=== PATIENT | male | born 1985 | race African-American/Black ===

== ENCOUNTER 2016-10-25 08:53 | Emergency (ER) | payer BC ==
[~2016-10-25] VITALS: Ht 175.3 cm; Wt 88.1 kg
[~2016-10-25 08:53] MED LIST: ATIVAN1 MG PO; KEPPRA500 MG PO; METOPROLOL SUCC50 M2 PO; NOR10T PO; XANAX1 MG PO; ZESTRIL20 MG PO
[2016-10-25 09:35] LABS: PLATELET COUNT 295 x10^3mcL (130-400); RED CELL DISTRIBUTION WIDTH 13.4 % (11.5-14.5)
[2016-10-25 09:47] LABS: CALCIUM 9.3 mg/dL (8.5-10.1); CARBON DIOXIDE 29.4 mmol/L (21-32); CHLORIDE SERUM 103 mmol/L (98-107); CREATININE SERUM 0.9 mg/dL (0.7-1.3); GFR1 > 60 mL/min; GLUCOSE SERUM 102 mg/dL (74-106); POTASSIUM SERUM 3.8 mmol/L (3.5-5.1); SODIUM SERUM 140 mmol/L (136-145)
[2016-10-25 09:52] LABS: ALBUMIN 4.1 g/dL (3.4-5.0); ALKALINE PHOSPHATASE 89 U/L (46-116); ALT/SGPT 32 U/L (16-63); AMYLASE 89 U/L (25-115); AST/SGOT 27 U/L (15-37); BILIRUBIN TOTAL 0.5 mg/dL (0.20-1.00); LIPASE 65 IU/L (73-393); TOTAL PROTEIN, SERUM 7.4 g/dL (6.4-8.2)
[2016-10-25 10:32] LABS: BAND NEUTROPHIL 0 % (0-10); BASOPHIL 0 % (0-2); MONOCYTE 3 % (0-7); SEGMENTED NEUTROPHILS 65 % (37-75)
[2016-10-25 12:36] LABS: UA SPECIFIC GRAVITY >=1.030 (1.005-1.035); microscopic required? YES; urine erythrocyte NEGATIVE (NEGATIVE)
[2016-10-25 15:31] VITALS: BP 130/79
== END 2016-10-25 15:31 | disposition home or self-care (01) ==
LOC: ED 08:53
PROVIDERS: Emergency Medicine
DX: R10.31 Right lower quadrant pain (principal)
CPT/HCPCS: J1170; J1885; J2405; Q9967

== ENCOUNTER 2017-01-02 07:56 | Emergency (ER) | payer OTHER ==
[2017-01-02 09:52] LABS: PLATELET COUNT 220 x10^3mcL (130-400); RED CELL DISTRIBUTION WIDTH 13.8 % (11.5-14.5)
[2017-01-02 10:06] LABS: ALBUMIN 4.1 g/dL (3.4-5.0); ALKALINE PHOSPHATASE 123 U/L (46-116); ALT/SGPT 32 U/L (16-63); AMYLASE 88 U/L (25-115); AST/SGOT 33 U/L (15-37); BILIRUBIN TOTAL 0.4 mg/dL (0.20-1.00); CALCIUM 7.5 mg/dL (8.5-10.1); CARBON DIOXIDE 30.1 mmol/L (21-32); CHLORIDE SERUM 104 mmol/L (98-107); CREATININE SERUM 1.1 mg/dL (0.7-1.3); GFR1 > 60 mL/min; GLUCOSE SERUM 94 mg/dL (74-106); LIPASE 72 IU/L (73-393); POTASSIUM SERUM 5.5 mmol/L (3.5-5.1); SODIUM SERUM 139 mmol/L (136-145); TOTAL PROTEIN, SERUM 7.7 g/dL (6.4-8.2)
[2017-01-02 10:07] LABS: CHOLESTEROL 132 mg/dL (<200); HDL CHOLESTEROL 93 mg/dL (40-60)
[2017-01-02 10:30] LABS: BAND NEUTROPHIL 1 % (0-10); BASOPHIL 0 % (0-2); MONOCYTE 4 % (0-7); SEGMENTED NEUTROPHILS 49 % (37-75)
[2017-01-02 10:32] LABS: PLATELET MORPHOLOGY PLATELETS NORMAL
[2017-01-02 12:25] VITALS: BP 133/70
== END 2017-01-02 12:25 | disposition home or self-care (01) ==
LOC: ED 07:56
PROVIDERS: Emergency Medicine
DX: R51 Headache (principal); R07.9 Chest pain, unspecified; D64.9 Anemia, unspecified; I10 Essential (primary) hypertension; G91.9 Hydrocephalus, unspecified; G40.909 Epilepsy, unspecified, not intractable, without status epilepticus; P15.3 Birth injury to eye; Z79.899 Other long term (current) drug therapy; Z87.891 Personal history of nicotine dependence; Z88.5 Allergy status to narcotic agent; Z91.041 Radiographic dye allergy status; Z95.5 Presence of coronary angioplasty implant and graft; Z97.0 Presence of artificial eye
CPT/HCPCS: 36415; 83880; J1885

== ENCOUNTER 2017-01-09 08:56 | Inpatient (IN) | payer OTHER ==
[~2017-01-09] VITALS: Ht 175.3 cm; Wt 86.2 kg
--- NOTE | 2017-01-09 09:24 | NUR ---
LAB AT BEDSIDE FOR BLOOD DRAW
[2017-01-09 09:56] LABS: BASOPHIL % 0.2 % (0-2); PLATELET COUNT 268 x10^3mcL (130-400); RED CELL DISTRIBUTION WIDTH 13.8 % (11.5-14.5)
[2017-01-09 10:08] LABS: ALBUMIN 4.3 g/dL (3.4-5.0); ALKALINE PHOSPHATASE 114 U/L (46-116); ALT/SGPT 31 U/L (16-63); AST/SGOT 28 U/L (15-37); BILIRUBIN TOTAL 0.47 mg/dL (0.20-1.00); CALCIUM 9.6 mg/dL (8.5-10.1); CARBON DIOXIDE 25.4 mmol/L (21-32); CHLORIDE SERUM 104 mmol/L (98-107); CREATININE SERUM 1.2 mg/dL (0.7-1.3); GFR1 > 60 mL/min; GLUCOSE SERUM 105 mg/dL (74-106); POTASSIUM SERUM 3.8 mmol/L (3.5-5.1); SODIUM SERUM 140 mmol/L (136-145); TOTAL PROTEIN, SERUM 7.7 g/dL (6.4-8.2)
--- NOTE | 2017-01-09 10:14 | NUR ---
PT GIVEN A PILLOW FOR COMFORT.
--- NOTE | 2017-01-09 10:55 | NUR ---
PT TO CT VIA MARE
--- NOTE | 2017-01-09 11:12 | NUR ---
PT BACK FROM CT. WARM BLANKETS PROVIDED. PT IN POSITION OF COMFORT ON CM WILL CONTINUE TO MONITOR. PT REQUESTING PAIN MEDICATION ER MD NOTIFIED.
--- NOTE | 2017-01-09 12:00 | NUR ---
PORTABLE CXR AT BEDSIDE.
--- NOTE | 2017-01-09 12:08 | NUR ---
LAB AT BEDSIDE FOR BLOOD DRAW
[2017-01-09 12:21] LABS: PHOSPHOROUS 3.6 mg/dL (2.5-4.9)
[2017-01-09 12:26] LABS: CHOLESTEROL/HDL RATIO 1.7
--- NOTE | 2017-01-09 12:29 | NUR ---
CARE OF PT RESUMED BY BENITO POSEY IN TELE FLOOR. PT TRANSFERRED WITH NO INCIDENT VIA RSIDNEY ON PORTABLE CM. ALL BELONGINGS SENT WITH PT.
[2017-01-09 12:39] LABS: T3 TOTAL 0.97 ng/mL
[2017-01-09 12:44] VITALS: BP 143/79
[2017-01-09 12:48] LABS: FREE T4 1.02 ng/dL (0.76-1.46); FREE THYROXINE INDEX 2.6 ug/dL (1.4-4.5); T4(THYROXINE) 7.1 ug/dL (4.7-13.3)
--- NOTE | 2017-01-09 12:56 | NUR ---
Pt ARRIVED ON THE FLOOR. COMPLAINING OF RIGHT SIDED PAIN. RIGHT ARM PAIN AND RIGHT SHOULDER PAIN 10/ .PER REPORT Pt RECEIVED TORADOL PRIOR TO ARRVING ON THE FLOOR. A/OX4. CLEAR SPEECH. FOLLOW COMMANDS. ON TEL 10 SR HR 87. RADIAL AND PEDAL PULSES PALPABLE. NO EDEMA OR SWELLING NOTED. <3 SECS CAP REFILL. ON RA SAT 100%. BREATHING EVEN AND UNLABORED. NO NVD. VOIDING ADEQUATELY PER Pt. GENERALIZED WEAKNESS DUE TO PAIN. NO SKIN TEAR OR OPEN WOUND. IV SITE INTACT ON YAZMIN. NS INFUSING WELL AT 50 ML/HR. WILL CONTINUE TO MONITOR. CALL LIGHT WITHIN REACH.
--- NOTE | 2017-01-09 13:10 | NUR ---
SPOKE TO DR LEE REGARDING Pt COMPLAINING OF RIGHT SIDE PAIN 05/04.
--- NOTE | 2017-01-09 13:48 | NUR ---
IV DILAUDID GIVEN PER DR LEE. DR LEE AT BEDSIDE. WILL CONTINUE TO MONITOR.
--- NOTE | 2017-01-09 13:49 | NUR ---
IV INFILTRATED. IV INITIATED TO LFA GAUGE 22. X1 ATTEMPT . Pt TOELRATED WELL.
[2017-01-09 14:24] VITALS: BP 143/79
[2017-01-09 15:05] LABS: microscopic required? NO
[2017-01-09 15:15] LABS: UA SPECIFIC GRAVITY 1.025 (1.005-1.035); urine erythrocyte NEGATIVE (NEGATIVE)
--- NOTE | 2017-01-09 15:23 | NUR ---
WITNESS Pt MOVING HIS RIGHT ARM OUTSIDE THE DOOR. DR LEE NOTIFIED. DR LEE ALSO WITNESSES Pt MOVING HIS RIGHT ARM AND RIGHT HAND WHILE USING HIS CELLPHONE. WHEN WE ENTERED THE ROOM Pt IMMEDIATELY PUT HIS RIGHT HAND DOWN PRETENDING HE WAS NOT MOVING IT.
[2017-01-09 15:24] LABS: AMPHETAMINE QUAL UR NONE DETECTED (NEG <=1000)
--- NOTE | 2017-01-09 16:03 | NUR ---
Pt WAS SEEN BY PHYSICAL THERAPY.
--- NOTE | 2017-01-09 17:16 | NUR ---
RECEIVED REPORT FROM BENITO POSEY, PT DENIES SOB, DENIES PAIN, CALL LIGHT WITHIN REACH, WILL CONTINUE TO MONITOR.
--- NOTE | 2017-01-09 18:07 | NUR ---
PT ASLEEP, NO INDICATION OF PAIN, BREATHING EVEN AND UNLABORED, CALL LIGHT WITHIN REACH, WILL ENDORSE PT TO NEXT SHIFT.
[2017-01-09 18:30] VITALS: BP 120/76
--- NOTE | 2017-01-09 20:00 | NUR ---
PATIENT RECEIVED IN BED AWAKE,ALERT AND ORIENTED X4, SPEECH CLEAR, NO SZ ACTIVITY THIS TIME, SZ PREC. MAINTAINED, PADDED RAILS UP. BREATHING EVEN AND UNLABORED BS CLEAR ALL [place], DENIES SOB ON EXERTION. ON ROOM AIR SAT 99% DENIES SOB. DENIES CHEST PAINS HR=73BPM, RHYTHM REGULAR TELE# 10 NSR. IV SITE NO SIGN OF INFILTRATION. GENERALIZED WEAKNESS STATED AND STATED RUE IS WEAKER THAN THE LEFT,DIGITAL ART DIRECTOR EQUAL AND STRONG.VOIDING FREELY DENIES PAIN UPON URINATION.,SAFETY/FALL/SZ PRECAUTIONS MAINTAINED. WILL CONTINUE TO MONITOR.
[2017-01-09 20:26] VITALS: BP 137/72
--- NOTE | 2017-01-09 21:38 | NUR ---
SCHEDULED MEDS ADMINISTERED THIS TIME, PATIENT INFORMED ABOUT EACH MEDS ACTION AND PURPOSE PRIOR. NO DIFF SWALLOWING DURING ADMINISTRATION.ALSO COMPLAINED RUE PAIN RATED AT 7/10 MEDICATED PRN AND MADE COMFORTABLE IN BED. WILL CONTINUE TO MONITOR.
[2017-01-09 21:39] VITALS: BP 139/77
--- NOTE | 2017-01-09 22:49 | NUR ---
PAGED DR ESPINAL AWAITS CALL BACK.
--- NOTE | 2017-01-09 22:50 | NUR ---
PATIENT CHECKED THIS TIME STATED PAIN SUBSIDING BUT STILL LINGERING AT 3/10 WILL CONTINUE TO MONITOR.
--- NOTE | 2017-01-09 23:22 | NUR ---
DR WATERS HERE INFORMED HIM ABOUT PATIENTS PAIN AND REQUEST FOR DIET.
--- NOTE | 2017-01-09 23:51 | NUR ---
PATIENT STATED EARLIER THAT TORADOL WAS GIVEN TO HIM TODAY AND IT HELPED RELIEVE HIS RUE PAIN, DR BRYANT WAS INFORMED ABOUT IT AND ORDERED 1X DOSE OF TORADOL. PATIENT PAIN IS COMING BACK STATED RATED AT 5/10,.MEDICATED ORDERED.
--- NOTE | 2017-01-10 00:44 | NUR ---
EKG DONE, DR ESPINAL SAW PRINTED RHYTHM AND INTERPRETATION AND COMPARED TO FIRST EKG.
--- NOTE | 2017-01-10 02:02 | NUR ---
PATIENT COMPLAINED OF MATTHEW PAIN, RATED AT 5/10, MEDICATED PRN AND MADE COMFORTABLE IN BED. WILL CHECK EFFECTIVENESS.
--- NOTE | 2017-01-10 05:34 | NUR ---
SCHEDULED MEDS ADMINISTERED,INFORMED PATIENT OF ITS ACTION AND PURPOSE PRIOR. NO DIFF SWALLOWING DURING ADMINISTRATION.PATIENT COMPLAINED OF RUE PAIN RATED AT 8/10, WHEN OFFERED NORCO PATIENT REFUSED AND STATED NEEDS A IV SHOT INSTEAD INFORMED THAT WE WILL CALL MD TO REPORT COMPLAINT AND REQUEST.WILL CALL DR ESPINAL.
--- NOTE | 2017-01-10 05:54 | NUR ---
PRN MEDICATION FOR PAIN ADMINISTERED,PATIENT INFORMED ABOUT ITS PURPOSE.
[2017-01-10 06:02] VITALS: BP 148/66
--- NOTE | 2017-01-10 06:29 | NUR ---
PATIENT SLEPT OFF AND ON DURING THE SHIFT, MEDICATED PRN FOR COMPLAINT OF RUE DENIED CHEST PAINS,NSR ON THE MONITOR. NO SEIZURE ACTIVITY DURING THE SHIFT. SAFETY/FALL/SZ PRECAUTION OBSERVED AND MAINTAINED. WILL ENDORSE CONTINUITY OF CARE TO INCOMING NURSE.
--- NOTE | 2017-01-10 07:15 | NUR ---
BEDSIDE REPORT AND INTRODUCTION PERFORMED WITH INCOMING NURSE MIKE.
--- NOTE | 2017-01-10 07:32 | NUR ---
PT RECEIVED DURING CHANGE OF SHIFT, A/OX4, SZ PRECAUTIONS, TELE 10, NSR, DENIES CHEST PAIN, PULSES PRESENT, NO EDEMA, LUNGS CTA ON RA, DENVIES N/V/D, BOWEL SOUNDS ACTIVE, C/O WEAKNESS/TINGLING TO RUE, SKIN WARM DRY INTACT, C/O RUE PAIN 01/02, IV TO LFA INFUSING NS AT 50ML/HR, CURRENTLY CALM AND COOPERATIVE, CALL LIGHT WITHIN REACH, WILL CONTINUE TO MONITOR.
[2017-01-10 08:38] LABS: BASOPHIL % 0.4 % (0-2); PLATELET COUNT 290 x10^3mcL (130-400); RED CELL DISTRIBUTION WIDTH 13.7 % (11.5-14.5)
--- NOTE | 2017-01-10 08:46 | NUR ---
PT DENIES SOB, PT C/O RADIATING PAIN FROM CHEST TO RUE 01/02, RECEIVED MED EDUCATION, CALL LIGHT WITHIN REACH, WILL CONTINUE TO MONITOR.
[2017-01-10 09:18] VITALS: BP 133/80
[2017-01-10 09:23] LABS: CALCIUM 9.2 mg/dL (8.5-10.1); CARBON DIOXIDE 24.8 mmol/L (21-32); CHLORIDE SERUM 104 mmol/L (98-107); CREATININE SERUM 1.3 mg/dL (0.7-1.3); GFR1 > 60 mL/min; GLUCOSE SERUM 131 mg/dL (74-106); MAGNESIUM 2.1 mg/dL (1.8-2.4); PHOSPHOROUS 3.9 mg/dL (2.5-4.9); POTASSIUM SERUM 3.9 mmol/L (3.5-5.1); SODIUM SERUM 140 mmol/L (136-145)
--- NOTE | 2017-01-10 10:18 | NUR ---
PT ASLEEP, NO INDICATION OF PAIN, BREATHING EVEN AND UNLABORED, CALL LIGHT WITHIN REACH, WILL CONTINUE TO MONITOR.
--- NOTE | 2017-01-10 11:20 | NUR ---
PT ASLEEP IN PRONE POSITION RESTING ON RIGHT ARM, NO INDICATION OF PAIN, BREATHING EVEN AND UNLABORED, CALL LIGHT WITHIN REACH, WILL CONTINUE TO MONITOR.
--- NOTE | 2017-01-10 12:35 | NUR ---
PT ASLEEP IN PRONE POSITION RESTING ON TOP OF RT ARM, NO INDICATION OF PAIN, BREATHING EVEN AND UNLABORED, CALL LIGHT WITHIN REACH, WILL CONTINUE TO MONITOR.
--- NOTE | 2017-01-10 13:08 | NUR ---
PT ASLEEP BUT AROUSABLE, NO INDICATION OF PAIN, BREATHING EVEN AND UNLABORED, INDUSTRIAL BOILERMAKER PAT AT BEDSIDE TAKING VITALS, WILL CONTINUE TO MONITOR.
[2017-01-10 13:19] VITALS: BP 129/66
--- NOTE | 2017-01-10 14:10 | NUR ---
PT ASLEEP RESTING IN PRONE POSITION ON RT ARM, NO INDICATION OF PAIN, BREATHING EVEN AND UNLABORED, CALL LIGHT WITHINR EACH, WILL CONTINUE TO MONITOR.
--- NOTE | 2017-01-10 15:02 | NUR ---
PT C/O RUE PAIN 03/04, DENIES SOB, CALL LIGHT WITHIN REACH, WILL CONTINUE TO MONITOR.
--- NOTE | 2017-01-10 16:25 | NUR ---
PT DENIES SOB, C/O 02/01 RUE PAIN, PT NOW AMBULATING HALLWAY, CALL LIGHT WITHIN REACH, WILL CONTINUE TO MONITOR.
[2017-01-10 16:43] VITALS: BP 139/82
--- NOTE | 2017-01-10 17:10 | NUR ---
PT DENIES SOB, DENIES PAIN, CALL LIGHT WITHIN REACH, WILL CONTINUE TO MONITOR.
--- NOTE | 2017-01-10 18:18 | NUR ---
PT DENIES SOB, DENIES PAIN, DINNER TRAY AT BEDSIDE, CALL LIGHT WITHIN REACH, WILL ENDORSE PT TO NEXT SHIFT.
--- NOTE | 2017-01-10 19:43 | NUR ---
RECEIVED PT FROM PREVIOUS SHIFT NURSE. PT AOX4. TELE #10, NSR, HR 79. DENIES CP/PRESSURE. PULSES GOOD, NO EDEMA NOTED. LUNG SOUNDS CLEAR, ON RA. DENIES SOB/DIFFICULTY BREATHING. BOWEL SOUNDS ACTIVE. VOIDS FREELY. RUE WEAKNESS. AMBULATORY. SKIN INTACT. IV IN LFA, INTACT AND PATENT. BED IN LOWEST POSITION. CALL LIGHT WITHIN REACH. WILL CONTINUE TO MONITOR.
[2017-01-10 21:18] VITALS: BP 139/73
--- NOTE | 2017-01-10 22:17 | NUR ---
PT REQUESTED MEDICATION TO HELP HIM STAY CALM, PT MEDICATED PER MAR.
--- NOTE | 2017-01-11 02:50 | NUR ---
PT RESTING IN BED. RR EVEN AND UNLABORED. NO ACUTE DISTRESS NOTED. CALL LIGHT WITHIN REACH. BED IN LOWEST POSITION. WILL CONTINUE TO MONITOR.
[2017-01-11 05:43] VITALS: BP 146/66
[2017-01-11 06:20] LABS: CALCIUM 8.8 mg/dL (8.5-10.1); CARBON DIOXIDE 30.3 mmol/L (21-32); CHLORIDE SERUM 105 mmol/L (98-107); CREATININE SERUM 1.3 mg/dL (0.7-1.3); GFR1 > 60 mL/min; GLUCOSE SERUM 98 mg/dL (74-106); MAGNESIUM 1.9 mg/dL (1.8-2.4); PHOSPHOROUS 4.5 mg/dL (2.5-4.9); SODIUM SERUM 140 mmol/L (136-145)
[2017-01-11 06:30] LABS: PLATELET COUNT 234 x10^3mcL (130-400); RED CELL DISTRIBUTION WIDTH 13.5 % (11.5-14.5)
--- NOTE | 2017-01-11 06:58 | NUR ---
PT SLEPT PERIODICALLY THROUGHOUT NIGHT. NO ACUTE DISTRESS NOTED. IV INTACT AND PATENT. BED IN LOWEST POSITION. CALL LIGHT WITHIN REACH. WILL ENDORSE TO ONCOMING SHIFT NURSE.
--- NOTE | 2017-01-11 07:35 | NUR ---
RECEIVED THE PATIENT ORIENTED TO PERSON, PLACE AND TIME. DENIED SHORTNESS OF BREATH OR NAUSEA/VOMITING. PATIENT STATED HAVING ACHING TO RUE, BUT TOLERATED AT THIS TIME 08/04 (NORCO 1 TAB WAS GIVEN TO THE PATIENT AT 0618 AM BY NOCS). WILL MEDICATE FOR PAIN PRN. IVF NS VIA H/L LFA. TELE # 10 READS SINUS RHYTHMS. CALL LIGHT WITHIN REACH. SIDE RAILS UP X2 AND PADDED FOR SEIZURE PRECAUTION.
[2017-01-11 08:25] LABS: BAND NEUTROPHIL 0 % (0-10); BASOPHIL 0 % (0-2); MONOCYTE 7 % (0-7)
[2017-01-11 08:26] LABS: SEGMENTED NEUTROPHILS 42 % (37-75)
[2017-01-11 08:28] LABS: burr cell (echinocyte) 1+; rbc morphology (normal/abnorm) ABNORMAL (NORMAL)
[2017-01-11 09:39] VITALS: BP 136/71
[2017-01-11 13:54] VITALS: BP 152/78
[2017-01-11] MEDS ORDERED: MECLIZINE HCL12.5 MG PO (14:30)
[2017-01-11] MEDS ORDERED: ECO81 PO (14:30)
[2017-01-11] MEDS ORDERED: ACETAMINOPHEN-H1 TA1 PO (14:31)
[2017-01-11] MEDS ORDERED: LIPI10 PO (14:37)
[2017-01-11] MEDS ORDERED: ZES20 PO (15:28)
[2017-01-11] MEDS ORDERED: KEP500 PO (15:28)
--- NOTE | 2017-01-11 15:31 | NUR ---
PT NOTES IN CONNECTION W/ [facility] SPTA DAILY NOTE 01/11/17: SPOKE W/ PRIMARY PHYSICAL THERAPIST SUE CEJA TO INCORPORATE ARM SWING W/ TRUNKAL ROTATION DURING AMBULATION. DEMO'S HIGHLY GUARDED R UE W/ ELBOW IN FLEX & R SHOULDER IR. EMPHASIS W/ TC/VC GIVEN ON TRUNKAL ROTATION & R ARM SWING MOVEMENT A FORM OF MODIFIED FUNCTIONAL EXERCISE PER EVALUATING PT RECOMMENDATION. PATIENT DOES NOT ALLOW FOR PROM IN SHOULDER, ELBOW TO FULL RANGE D/T PAIN ON R SHOULDER. PATIENT DEMO'S APPROXIMATELY R SHOULDER FLEX 40 DEGREE, ELBOW FLEX 90 DEGREE, & ELBOW EXT -5 DEGREE. MANUAL MUSCLE STRENGTH R UE 2/5, L UE 4/5. PRIMARY THERAPIST AWARE. [id number]', [id number]'
[2017-01-11 16:03] VITALS: BP 152/78
[2017-01-11] MEDS ORDERED: XAN1 PO (16:38)
--- NOTE | 2017-01-11 17:51 | NUR ---
DISCHARGE INSTRUCTION AND PRESCRIPTION WERE IMPLEMENTED TO THE PATIENT EARLIER BY SHARON Burger RN. BUS VOUCHER HAS BEEN PROVIDED TO THE PATIENT. H/L WAS REMOVED WITH CATH INTACT. TELE AND ID BANDS WERE REMOVED.
--- NOTE | 2017-01-11 17:51 | NUR ---
THE PATIENT WAS TAKEN TO THE LOBBY VIA WHEELCHAIR IN STABLE CONDITION. ALL BELONGINGS WERE SENT HOME WITH THE PATIENT UPON DISCHARGE.
== END 2017-01-11 17:46 | disposition home or self-care (01) | DRG 53 ==
LOC: ED 08:56 → DU 11:37
PROVIDERS: Emergency Medicine; ADMIT Family Medicine
DX: G40.909 Epilepsy, unspecified, not intractable, without status epilepticus (principal); M48.02 Spinal stenosis, cervical region; I10 Essential (primary) hypertension; F41.9 Anxiety disorder, unspecified; E04.2 Nontoxic multinodular goiter; H54.42 Blindness, left eye, normal vision right eye; M51.34 Other intervertebral disc degeneration, thoracic region; F17.210 Nicotine dependence, cigarettes, uncomplicated; D72.819 Decreased white blood cell count, unspecified; M40.50 Lordosis, unspecified, site unspecified; W18.39XA Other fall on same level, initial encounter; Y93.89 Activity, other specified; Y92.89 Other specified places as the place of occurrence of the external cause; Y99.8 Other external cause status; Z98.2 Presence of cerebrospinal fluid drainage device; Z88.5 Allergy status to narcotic agent; Z90.49 Acquired absence of other specified parts of digestive tract; Z82.49 Family history of ischemic heart disease and other diseases of the circulatory system; Z83.3 Family history of diabetes mellitus
CPT/HCPCS: 72072; 83880; 84439; 97110-GP; G0480; J1170; J1885; J2060; J7030; Q0092

== ENCOUNTER 2017-02-07 10:05 | Emergency (ER) | payer OTHER ==
[~2017-02-07] VITALS: Ht 175.3 cm; Wt 91.6 kg
[~2017-02-07 10:05] MED LIST changes: +ACETAMINOPHEN-H1 TA1 PO; +ECO81 PO; +KEP500 PO; +LIPI10 PO; +MECLIZINE HCL12.5 MG PO; +XAN1 PO; +ZES20 PO
[2017-02-07 11:17] LABS: BASOPHIL % 0.3 % (0-2); PLATELET COUNT 291 x10^3mcL (130-400); RED CELL DISTRIBUTION WIDTH 14.3 % (11.5-14.5)
[2017-02-07 12:09] LABS: CALCIUM 9.1 mg/dL (8.5-10.1); CARBON DIOXIDE 29.3 mmol/L (21-32); CHLORIDE SERUM 106 mmol/L (98-107); CREATININE SERUM 1.2 mg/dL (0.7-1.3); GFR1 > 60 mL/min; GLUCOSE SERUM 96 mg/dL (74-106); POTASSIUM SERUM 4.2 mmol/L (3.5-5.1); SODIUM SERUM 143 mmol/L (136-145)
[2017-02-07 12:15] LABS: ALBUMIN 3.6 g/dL (3.4-5.0); ALKALINE PHOSPHATASE 105 U/L (46-116); ALT/SGPT 32 U/L (16-63); AST/SGOT 33 U/L (15-37); BILIRUBIN TOTAL 0.3 mg/dL (0.20-1.00); TOTAL PROTEIN, SERUM 6.8 g/dL (6.4-8.2)
[2017-02-07 12:55] VITALS: BP 142/95
== END 2017-02-07 13:10 | disposition home or self-care (01) ==
LOC: ED 10:05
PROVIDERS: Emergency Medicine
DX: S30.0XXA Contusion of lower back and pelvis, initial encounter (principal); S70.02XA Contusion of left hip, initial encounter; R56.9 Unspecified convulsions; I10 Essential (primary) hypertension; Z88.5 Allergy status to narcotic agent; Z91.041 Radiographic dye allergy status; Z79.899 Other long term (current) drug therapy; W18.30XA Fall on same level, unspecified, initial encounter; Y93.89 Activity, other specified; Y99.8 Other external cause status; Y92.89 Other specified places as the place of occurrence of the external cause
CPT/HCPCS: J2405; J3010

== ENCOUNTER 2020-03-01 16:16 | Emergency (ER) | payer OTHER ==
[~2020-03-01] VITALS: Ht 172.7 cm; Wt 102.1 kg
[2020-03-01 16:17] VITALS: Ht 172.7 cm; Wt 102.1 kg
[2020-03-01 17:59] LABS: BASOPHIL % 0.7 % (0-2); PLATELET COUNT 308 x10^3mcL (130-400); RED CELL DISTRIBUTION WIDTH 13.1 % (11.5-14.5)
[2020-03-01 18:06] LABS: CARBON DIOXIDE 27.5 mmol/L (21-32); CHLORIDE SERUM 102 mmol/L (98-107); CREATININE SERUM 1.1 mg/dL (0.7-1.3); GFR1 > 60 mL/min; GLUCOSE SERUM 110 mg/dL (74-106); POTASSIUM SERUM 3.7 mmol/L (3.5-5.1); SODIUM SERUM 138 mmol/L (136-145)
[2020-03-01 18:14] LABS: ALBUMIN 3.6 g/dL (3.4-5.0); ALKALINE PHOSPHATASE 146 U/L (46-116); ALT/SGPT 38 U/L (16-63); AST/SGOT 29 U/L (15-37); LIPASE 61 IU/L (73-393); TOTAL PROTEIN, SERUM 7.5 g/dL (6.4-8.2)
[2020-03-01 20:25] VITALS: BP 149/85
== END 2020-03-01 20:25 | disposition home or self-care (01) ==
LOC: ED 16:16
PROVIDERS: Emergency Medicine
DX: R10.811 Right upper quadrant abdominal tenderness (principal); R10.813 Right lower quadrant abdominal tenderness; R10.30 Lower abdominal pain, unspecified; G47.00 Insomnia, unspecified; R11.0 Nausea; I10 Essential (primary) hypertension; Z90.49 Acquired absence of other specified parts of digestive tract; Z88.5 Allergy status to narcotic agent; F17.200 Nicotine dependence, unspecified, uncomplicated
CPT/HCPCS: 83880; 99406; J2405; J3010; J7030; Q0092

== ENCOUNTER 2020-03-07 22:31 | Emergency (ER) | payer OTHER ==
[~2020-03-07] VITALS: Ht 172.7 cm; Wt 105.2 kg
[2020-03-07 22:38] VITALS: BP 189/120; Ht 172.7 cm; Wt 105.2 kg
[2020-03-08 00:25] LABS: CALCIUM 8.8 mg/dL (8.5-10.1); CHLORIDE SERUM 103 mmol/L (98-107); CREATININE SERUM 1.2 mg/dL (0.7-1.3); GFR1 > 60 mL/min; GLUCOSE SERUM 109 mg/dL (74-106); POTASSIUM SERUM 3.8 mmol/L (3.5-5.1); SODIUM SERUM 139 mmol/L (136-145)
[2020-03-08 00:30] LABS: BASOPHIL % 0.3 % (0-2); PLATELET COUNT 263 x10^3mcL (130-400); RED CELL DISTRIBUTION WIDTH 12.4 % (11.5-14.5)
[2020-03-08 00:31] LABS: ALBUMIN 3.7 g/dL (3.4-5.0); ALKALINE PHOSPHATASE 140 U/L (46-116); ALT/SGPT 39 U/L (16-63); AST/SGOT 31 U/L (15-37); BILIRUBIN TOTAL 0.3 mg/dL (0.20-1.00); TOTAL PROTEIN, SERUM 7.6 g/dL (6.4-8.2)
== END 2020-03-08 00:40 | disposition left against medical advice (07) ==
LOC: ED 22:31
DX: R10.11 Right upper quadrant pain (principal); R11.2 Nausea with vomiting, unspecified; R63.0 Anorexia; I10 Essential (primary) hypertension; Z88.5 Allergy status to narcotic agent; Z98.890 Other specified postprocedural states; Z90.49 Acquired absence of other specified parts of digestive tract
CPT/HCPCS: Q0162